=== PATIENT | male | born 1965 | race American Indian/Alaskan Native ===

== ENCOUNTER 2016-07-13 20:04 | Emergency (ER) | payer OTHER ==
[2016-07-13 20:08] VITALS: BP 148/102
[2016-07-13 20:44] LABS: CHLORIDE,CL 109 mmol/L (101-111); SODIUM,NA 143 mmol/L (135-145)
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
== END 2016-07-13 22:25 ==
LOC: DL.ED 20:04
DX: F10.10 Alcohol abuse, uncomplicated (principal)
CPT/HCPCS: 36415; 80053; 80305; 81001; 85025; 99284; G0480; 99282

== ENCOUNTER 2017-09-25 02:01 | Emergency (ER) | payer OTHER ==
[2017-09-25] MEDS ORDERED: Acetaminophen/HYDROcodone 325-10 MG Tab PO ONE (02:02)
[2017-09-25] MEDS ORDERED: Cyclobenzaprine 10 MG Tab PO ONE ×2 (02:02→02:19)
[2017-09-25 02:09] VITALS: BP 158/95
[2017-09-25] MEDS ORDERED: Acetaminophen/oxyCODONE 325-5 MG Tab PO ONE (02:19)
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
[2017-09-25] MEDS ORDERED: Ketorolac 30 MG/ML SDV IM ONE (03:25)
[2017-09-25] MEDS ORDERED: Cyclobenzaprine 10 MG Tab ONE (04:12)
[2017-09-25] MEDS ORDERED: Acetaminophen/HYDROcodone 325-10 MG Tab ONE (04:12)
== END 2017-09-25 04:23 | disposition home or self-care (01) ==
LOC: DL.ED 02:01
DX: M54.6 Pain in thoracic spine (principal); R07.81 Pleurodynia; E11.9 Type 2 diabetes mellitus without complications; I10 Essential (primary) hypertension; Z88.0 Allergy status to penicillin; Z87.81 Personal history of (healed) traumatic fracture
CPT/HCPCS: 72128; 96372; 99284; A9270; J1885

== ENCOUNTER 2019-10-14 18:40 | Emergency (ER) | payer SELFPAY ==
[2019-10-14 19:45] VITALS: BP 100/60; PULSE 95
--- NOTE | 2019-10-14 20:33 | CR ---
PROCEDURE INFORMATION: Exam: XR Chest, 1 View Exam date and time: 10/14/2019 8:08 PM Age: 53 years old Clinical indication: Shortness of breath; Additional info: Covid postive, shortness of breath TECHNIQUE: Imaging protocol: XR of the chest Views: 1 view. COMPARISON: No relevant prior studies available. FINDINGS: Lungs: Bilateral lower lung infiltrates consistent with bibasilar pneumonia. Pleural space: Unremarkable. No pleural effusion. No pneumothorax. Heart/Mediastinum: Unremarkable. No cardiomegaly. Bones/joints: Unremarkable. IMPRESSION: Bilateral lower lung infiltrates consistent with Bibasilar pneumonia
--- NOTE | 2019-10-14 20:39 | EDM.PDOC ---
ED HPI GENERAL MEDICAL PROBLEM - General Chief Complaint: Respiratory Problem Stated Complaint: Shortness of breath Time Seen by Provider: 10/14/19 20:20 Source of Information: Reports: Patient, Provider, RN History Limitations: Reports: No Limitations - History of Present Illness INITIAL COMMENTS - FREE TEXT/NARRATIVE: 53-year-old male who presents to the ER with complaints of shortness of breath and nonproductive cough 12 hours. Patient reports he was diagnosed with COVID- 19 2 days ago. He reports waking up this morning with a nonproductive cough and shortness of breath. He denies having any other symptoms. States he has been resting. He has no medical problems at this time and he is currently not taking any medications. - Related Data Allergies Allergy/AdvReac Type Severity Reaction Status Date / Time Penicillins Allergy Cannot Verified 10/14/19 19:45 Remember Home Meds: Home Meds . [No Known Home Meds] 07/13/16 [History] Past Medical History - Past Health History Medical/Surgical History: Denies Medical/Surgical History Cardiovascular History: Reports: High Cholesterol, Hypertension Endocrine/Metabolic History: Reports: Diabetes, Type II - Infectious Disease History Infectious Disease History: Reports: Novel Coronavirus Social & Family History - Family History Family Medical History: Noncontributory - Tobacco Use Smoking Status *Q: Never Smoker Second Hand Smoke Exposure: No - Recreational Drug Use Recreational Drug Use: No ED ROS GENERAL - Review of Systems Review Of Systems: See Below Constitutional: Reports: No Symptoms HEENT: Reports: No Symptoms Respiratory: Reports: Shortness of Breath, Cough (non productive) Cardiovascular: Reports: No Symptoms GI/Abdominal: Reports: No Symptoms : Reports: No Symptoms Musculoskeletal: Reports: No Symptoms Skin: Reports: No Symptoms Neurological: Reports: No Symptoms Psychiatric: Reports: Anxiety Hematologic/Lymphatic: Reports: No Symptoms Immunologic: Reports: No Symptoms ED EXAM, GENERAL - Physical Exam Exam: See Below General Appearance: Alert, WD/WN, No Apparent Distress Ears: Normal External Exam, Normal Canal, Hearing Grossly Normal, Normal TMs Nose: Normal Inspection, Normal Mucosa Throat/Mouth: Normal Inspection, Normal Gums, Normal Oropharynx, Normal Voice, No Airway Compromise Head: Atraumatic, Normocephalic Neck: Normal Inspection, Supple, Non-Tender, Full Range of Motion Respiratory/Chest: No Respiratory Distress, Lungs Clear, Normal Breath Sounds, No Accessory Muscle Use, Chest Non-Tender Cardiovascular: Normal Peripheral Pulses, Regular Rate, Rhythm, No Edema, No Gallop, No JVD, No Murmur, No Rub Peripheral Pulses: 2+: Dorsalis Pedis (L), Dorsalis Pedis (R) GI/Abdominal: Normal Bowel Sounds, Soft, Non-Tender Neurological: Alert, Oriented Skin Exam: Warm Lymphatic: No Adenopathy Course - Vital Signs Last Recorded V/S: Last Vital Signs Temp 98.4 F 10/14/19 19:40 Pulse 95 10/14/19 19:40 Resp 18 10/14/19 19:40 BP 100/60 10/14/19 19:40 Pulse Ox 93 L 10/14/19 19:40 - Orders/Labs/Meds Orders: Active Orders 24 hr Category Date Time Status Chest 1V Frontal [CR] Stat Exams 10/14/19 19:55 Taken - Re-Assessments/Exams Free Text/Narrative Re-Assessment/Exam: Exam findings and x-ray results reviewed with patient. encourage ibuprofen and Tylenol for body aches push, pushing fluids and rest. Symptoms to return to the ER reviewed the patient. Encouraged him to follow up with PCP in the clinic. Departure - Departure Time of Disposition: 21:25 Disposition: Home, Self-Care 01 Condition: Fair Clinical Impression: COVID-19 Pneumonia Qualifiers: Pneumonia type: due to unspecified organism Laterality: bilateral Lung location: unspecified part of lung Qualified Code(s): J18.9 - Pneumonia, unspecified organism - Discharge Information Instructions: Shortness of Breath, Adult, [id number], COVID-19: How to Protect Yourself and Others - CDC, COVID-19 Additional Instructions: Push fluids and rest Tylenol/Ibuprofen for bodyaches Tea with lemon/honey Follow up with PCP Sepsis Event Note (ED) - Evaluation Sepsis Screening Result: No Definite Risk - Focused Exam Vital Signs: Vital Signs Temp Pulse Resp BP Pulse Ox 10/14/19 19:40 98.4 F 95 18 100/60 93 L
== END 2019-10-14 22:17 | disposition home or self-care (01) ==
LOC: DL.ED 18:40
DX: U07.1 COVID-19 (principal); J12.89 Other viral pneumonia; I10 Essential (primary) hypertension; E11.9 Type 2 diabetes mellitus without complications; Z88.0 Allergy status to penicillin
CPT/HCPCS: 71045; 99285-25

== ENCOUNTER 2021-09-17 09:22 | Inpatient (IN) | payer MEDICAID ==
[2021-09-17] MEDS ORDERED: MVI, Adult with Vitamin K 10 ML, Thiamine 100 MG, Folic Acid 1 MG in Lactated Ringers 1... IV ONE ×4 (09:40)
[2021-09-17] MEDS: Sodium Chloride 0.9% 10 ML Syringe FLUSH PRN (10:12)
[2021-09-17 10:24] LABS: ANION GAP 16.6 mEq/L (7-13)
[2021-09-17 10:31] LABS: PTT,PARTIAL THROMBOPLSTIN TIME 27.4 SEC (22.0-34.0)
[2021-09-17 10:46] LABS: CORONAVIRUS COVID-19 NAA NEGATIVE (NEGATIVE); RESPIRATORY SYNCYTIAL VIR NAA NEGATIVE (NEGATIVE)
[2021-09-17] MEDS ORDERED: Docusate Sodium 100 MG Cap PO PRN (11:37)
[2021-09-17] MEDS ORDERED: Ondansetron 4 MG/2 ML SDV IVPUSH PRN (11:37)
[2021-09-17] MEDS ORDERED: Acetaminophen 325 MG Tab PO PRN (11:37)
[2021-09-17] MEDS ORDERED: LORazepam 0.5 MG Tab PO PRN (11:43)
[2021-09-17 11:44] LABS: AMPHETAMINES,URINE NEGATIVE (NEGATIVE); BARBITURATES,URINE NEGATIVE (NEGATIVE); BENZODIAZEPINE,URINE NEGATIVE (NEGATIVE); MDMA (ECSTASY), URINE NEGATIVE (NEGATIVE); METHADONE,URINE NEGATIVE (NEGATIVE); METHAMPHETAMINES,URINE NEGATIVE (NEGATIVE); OPIATES,URINE NEGATIVE (NEGATIVE); OXYCODONE,URINE NEGATIVE (NEGATIVE); PHENCYCLIDINE,URINE NEGATIVE (NEGATIVE); TCA,URINE NEGATIVE (NEGATIVE)
[2021-09-17] MEDS: ClonazePAM 0.5 MG Tab PO SCH ×3 (12:42→20:47)
[2021-09-17] MEDS: Sodium Chloride 0.9% 1,000 ML IV SCH ×2 (12:42→20:47)
[2021-09-17] MEDS: Omeprazole 20 MG Cap.CR PO SCH (15:52)
[2021-09-17] MEDS: Thiamine 100 MG Tab PO SCH (20:46)
[2021-09-18] MEDS: Sodium Chloride 0.9% 1,000 ML IV SCH (04:54)
[2021-09-18] MEDS: Omeprazole 20 MG Cap.CR PO SCH ×2 (05:00→16:05)
[2021-09-18 06:25] LABS: ANION GAP 10.8 mEq/L (7-13); CHLORIDE,CL 104 mmol/L (98-107); SODIUM,NA 137 mmol/L (136-145)
[2021-09-18 06:33] LABS: ESTIMATED GFR 102 mL/min (>=60)
[2021-09-18] MEDS: Multivitamin Tab PO SCH (09:07)
[2021-09-18] MEDS: Enoxaparin 40 MG/0.4 ML Syringe SUBCUT SCH (09:07)
[2021-09-18] MEDS: ClonazePAM 0.5 MG Tab PO SCH ×3 (09:07→20:25)
[2021-09-18 09:32] LABS: HEMOGLOBIN A1C 9.4 % (<5.7)
[2021-09-18] MEDS: Metoprolol Tartrate 25 MG Tab PO SCH ×2 (10:17→20:25)
[2021-09-18] MEDS: Lisinopril 20 MG Tab PO SCH (10:18)
[2021-09-18] MEDS: Sodium Chloride 0.9% 10 ML Syringe FLUSH PRN (20:25)
[2021-09-18] MEDS: Thiamine 100 MG Tab PO SCH (20:25)
[2021-09-19] MEDS: Omeprazole 20 MG Cap.CR PO SCH (06:18)
[2021-09-19] MEDS ORDERED: Aspirin 81 MG Tab.EC PO SCH (09:00)
[2021-09-19] MEDS ORDERED: glipiZIDE 5 MG Tab.ER PO SCH (09:03)
[2021-09-19] MEDS: Multivitamin Tab PO SCH (09:50)
[2021-09-19] MEDS: ClonazePAM 0.5 MG Tab PO SCH ×2 (09:51→14:16)
[2021-09-19] MEDS: Metoprolol Tartrate 25 MG Tab PO SCH (09:51)
[2021-09-19] MEDS: Lisinopril 20 MG Tab PO SCH (09:51)
[2021-09-19] MEDS: Enoxaparin 40 MG/0.4 ML Syringe SUBCUT SCH (09:52)
[2021-09-19 12:06] VITALS: BP 141/93; PULSE 66
[2021-09-20] MEDS ORDERED: glipiZIDE 5 MG Tab.ER PO SCH (08:00)
== END 2021-09-19 14:57 | disposition home or self-care (01) | DRG 897 ==
LOC: DL.ED 09:22 → DL.MS 10:54 → DL.ED 11:23
PROVIDERS: ADMIT Internal Medicine; ATTEND Internal Medicine
DX: F10.229 Alcohol dependence with intoxication, unspecified (principal); E78.00 Pure hypercholesterolemia, unspecified; I10 Essential (primary) hypertension; Y90.8 Blood alcohol level of 240 mg/100 ml or more; E11.9 Type 2 diabetes mellitus without complications; Z20.822 Contact with and (suspected) exposure to COVID-19; Z88.0 Allergy status to penicillin; Z79.82 Long term (current) use of aspirin; Z79.899 Other long term (current) drug therapy; Z86.16 Personal history of COVID-19; Z28.82 Immunization not carried out because of caregiver refusal
CPT/HCPCS: 0241U; 36415; 80053; 80305-QW; 80307; 81001; 82140; 83036; 83735; 85025; 85610; 85730; 93005; 93010; 99221; 99232; 99239; 99284; A9270-GY; J1650; J3411; J3490; J7030; J7120

== ENCOUNTER 2022-12-02 07:17 | Emergency (ER) | payer MEDICAID ==
[~2022-12-02 07:17] MED LIST: Sodium Chloride 0.9% 10 ML Syringe FLUSH PRN
[2022-12-02 07:26] LABS: BASOPHILS PERCENT AUTO 1.1 % (0.0-1.0); EOSINOPHILS PERCENT AUTO 1.9 % (1.0-3.0); HEMATOCRIT 47.1 % (40.0-54.0); HEMOGLOBIN 16.8 g/dL (14.0-18.0); LYMPHOCYTES PERCENT AUTO 42.5 % (20.5-50.1); MEAN CORPUSCULAR HEMOGLOBIN 31.1 pg (27.0-34.0); MEAN CORPUSCULAR HGB CONC 35.7 g/dL (33.0-35.0); MEAN CORPUSCULAR VOLUME 87.2 fL (80-100); MONOCYTES PERCENT AUTO 14.2 % (2-8); NEUTROPHILS PERCENT AUTO 40.3 % (42.2-75.2); PLATELET COUNT,PLT 168 10^3/uL (150-450); WHITE BLOOD CELL COUNT,WBC 6.2 10^3/uL (5.0-10.0)
[2022-12-02] MEDS ORDERED: Sodium Chloride 0.9% 1,000 ML IV ONE ×2 (07:43→08:06)
[2022-12-02 07:49] LABS: A/G RATIO 0.7; ALBUMIN 3.4 g/dL (3.4-5.0); ANION GAP 16.1 mEq/L (7-13); BILIRUBIN TOTAL 0.7 mg/dL (0.2-1.0); BUN/CREATININE RATIO 6.8 (No establ ref range); CALCIUM 8.8 mg/dL (8.5-10.1); CREATININE 1.03 mg/dL (0.70-1.30); EST CRCL DRUG DOSING (CG) 86.85 mL/min; POTASSIUM,K 3.1 mmol/L (3.5-5.1); PROTEIN TOTAL,TP 8.2 g/dL (6.4-8.2)
[2022-12-02 07:50] LABS: INR 1.1 (0.9-1.2); PTT,PARTIAL THROMBOPLSTIN TIME 28.3 SEC (22.0-34.0)
[2022-12-02] MEDS ORDERED: Potassium Chloride 10 MEQ Tab.ER PO ONE (07:52)
[2022-12-02 08:50] VITALS: BP 111/80; PULSE 85
== END 2022-12-02 08:57 | disposition left against medical advice (07) ==
LOC: DL.ED 07:17
DX: I48.91 Unspecified atrial fibrillation (principal); E78.00 Pure hypercholesterolemia, unspecified; I10 Essential (primary) hypertension; E11.9 Type 2 diabetes mellitus without complications; Z86.16 Personal history of COVID-19; Z88.0 Allergy status to penicillin; Z79.82 Long term (current) use of aspirin; Z79.84 Long term (current) use of oral hypoglycemic drugs; Z79.899 Other long term (current) drug therapy
CPT/HCPCS: 36415; 71045; 80053; 82272; 84484; 85025; 85610; 85730; 93005; 93010; 96360; 99285; 99285-25; A9270-GY; J3490; J7030